=== PATIENT | female | born 1995 | race Two or more races ===

== ENCOUNTER 2021-04-10 10:43 | Emergency (ER) | payer OTHER ==
[~2021-04-10] VITALS: Ht 152.4 cm; Wt 50.0 kg
[2021-04-10 13:29] VITALS: BP 132/65
== END 2021-04-10 14:00 | disposition home or self-care (01) ==
LOC: EMS 10:51
DX: Z11.1 Encounter for screening for respiratory tuberculosis (principal)
CPT/HCPCS: 71045; 99283